=== PATIENT | male | born 1990 | race American Indian/Alaskan Native ===

== ENCOUNTER 2018-07-09 05:08 | Emergency (ER) | payer MEDICAID ==
[2018-07-09 05:10] VITALS: BMI 23.6
[2018-07-09 05:20] VITALS: RESP 18; O2SAT 98
--- NOTE | 2018-07-09 05:32 | ED PDOC ---
Arrival/HPI - General Chief Complaint: Upper Extremity Problem/Injury Time Seen by Provider: 07/09/18 05:13 Historian: Patient - History of Present Illness Narrative History of Present Illness (Text): 07/09/18 05:27 Telma Miles is a 28 year old male who presents to the Emergency department complaining of right shoulder pain. Patient states he woke up this morning with right shoulder pain, worsened with movement. Patient denies any recent trauma/ injury, decreased range of motion, weakness/numbness/tingling in the extremity, back pain, neck pain, or any other complaints. Symptom Onset: Gradual Symptom Course: Unchanged Activities at Onset: Light Context: Home Past Medical History - Provider Review Nursing Documentation Reviewed: Yes - Infectious Disease Hx of Infectious Diseases: None - Tetanus Immunization Tetanus Immunization: Unknown - Psychiatric Hx Depression: No Hx Emotional Abuse: No Hx Physical Abuse: No Hx Substance Use: No - Suicidal Assessment Feels Threatened In Home Enviroment: No Family/Social History - Physician Review Nursing Documentation Reviewed: Yes Family/Social History: Unknown Family HX Smoking Status: Light Smoker < 10 Cigarettes Daily Hx Alcohol Use: Yes Frequency of alcohol use: Socially Hx Substance Use: No Allergies/Home Meds Allergies/Adverse Reactions: Allergies No Known Allergies Allergy (Verified 05/13/13 06:46) Review of Systems - Physician Review All systems were reviewed & negative as marked: Yes - Review of Systems Constitutional: Normal. absent: Fevers Eyes: Normal ENT: Normal Respiratory: Normal. absent: SOB, Cough Cardiovascular: Normal. absent: Chest Pain Gastrointestinal: Normal. absent: Abdominal Pain, Diarrhea, Nausea, Vomiting Genitourinary Male: Normal. absent: Dysuria, Frequency, Hematuria, Urinary Output Changes Musculoskeletal: Arthralgias (+right shoulder pain). absent: Back Pain, Neck Pain Skin: Normal. absent: Rash Neurological: Normal. absent: Headache, Dizziness Endocrine: Normal Hemo/Lymphatic: Normal Psychiatric: Normal Physical Exam Vital Signs Reviewed: Yes Vital Signs Temp Pulse Resp BP Pulse Ox 07/09/18 05:20 98.3 F 56 L 18 120/63 98 Temperature: Afebrile Blood Pressure: Normal Pulse: Regular Respiratory Rate: Normal Appearance: Positive for: Well-Appearing, Non-Toxic, Comfortable Pain Distress: None Mental Status: Positive for: Alert and Oriented X 3 - Systems Exam Head: Present: Atraumatic, Normocephalic Pupils: Present: PERRL Extroacular Muscles: Present: EOMI Conjunctiva: Present: Normal Mouth: Present: Moist Mucous Membranes Neck: Present: Normal Range of Motion Respiratory/Chest: Present: Clear to Auscultation, Good Air Exchange. No: Respiratory Distress, Accessory Muscle Use Cardiovascular: Present: Regular Rate and Rhythm, Normal S1, S2. No: Murmurs Back: Present: Normal Inspection Upper Extremity: Present: Normal ROM (Full ROM), NORMAL PULSES, Tenderness ( Discomfort with right shoulder abduction), Neurovascularly Intact, Capillary Refill < 2s, Other (No joint laxity). No: Cyanosis, Edema, Swelling, Erythema, Temperature Abnormalties, Deformity Lower Extremity: Present: Normal Inspection. No: Edema Neurological: Present: GCS=15, CN II-XII Intact, Speech Normal, Motor Func Grossly Intact, Normal Sensory Function, Normal Cerebellar Funct Skin: Present: Warm, Dry, Normal Color. No: Rashes Psychiatric: Present: Alert, Oriented x 3, Normal Insight, Normal Concentration Medical Decision Making ED Course and Treatment: 07/09/18 05:27 Impression: 28 year old male complaining of right shoulder pain after waking this morning. Plan: -- XR Right Shoulder -- Toradol -- Reassess and disposition Progress Notes: 07/09/18 05:56 XR Right Shoulder reviewed, shows no acute processes. 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 Yes Sleep Is patient sleeping during reassessment? No Presence of Pain Presence of Pain Yes Pain Scale Used Pain Scale Used Numeric Location Left, Right or Bilateral Right Pain Location Body Site Shoulder Description Description Constant Pain Behavior Rubbing Site Facial Grimacing IM Administration Charges Document 07/09/18 05:38 (Rec: 07/09/18 05:41 [id number] Injection Site MAR Injection Site Left Deltoid Charges for Administration # of IM Administrations 1 - Scribe Statement The provider has reviewed the documentation as recorded by the Salome Gay Provider Antonioibe Attestation: All medical record entries made by the Scribe were at my direction and personally dictated by me. I have reviewed the chart and agree that the record accurately reflects my personal performance of the history, physical exam, medical decision making, and the department course for this patient. I have also personally directed, reviewed, and agree with the discharge instructions and disposition. Disposition/Present on Arrival - Present on Arrival Any Indicators Present on Arrival: No History of DVT/PE: No History of Uncontrolled Diabetes: No Urinary Catheter: No History of Decub. Ulcer: No History Surgical Site Infection Following: None - Disposition Have Diagnosis and Disposition been Completed?: Yes Diagnosis: Shoulder bursitis Disposition: HOME/ ROUTINE Disposition Time: 06:12 Patient Plan: Discharge Condition: GOOD Discharge Instructions (ExitCare): Shoulder Bursitis (DC) Additional Instructions: Avoid excessive use of affected area/take meds as prescribed/follow up with your doctor/orthopedist this week Prescriptions: Naproxen [Naprosyn] 500 mg PO BID PRN #14 tab PRN Reason: Pain Forms: [employer] ([place]vian)
[2018-07-09 07:17] VITALS: BP 112/58; PULSE 60; TEMP 98.6
--- NOTE | 2018-07-09 10:59 | RAD ---
Date of service: 07/09/2018 PROCEDURE: Radiographs of the Right Shoulder HISTORY: pain COMPARISON: No prior. FINDINGS: BONES: Normal. No fracture. JOINTS: Normal. Glenohumeral and acromioclavicular joints preserved. No osteoarthritis. SOFT TISSUES: Minimal calcifications in the rotator cuff OTHER FINDINGS: None. IMPRESSION: No acute findings
== END 2018-07-09 06:30 | disposition home or self-care (01) ==
LOC: ED 05:08
DX: M75.51 Bursitis of right shoulder (principal); F17.210 Nicotine dependence, cigarettes, uncomplicated
CPT/HCPCS: 73030; 96372; 99284; J1885